=== PATIENT | male | born 1930 | race Caucasian/White ===

== ENCOUNTER 2017-04-22 19:24 | Inpatient (IN) | payer OTHER ==
[~2017-04-22] VITALS: Ht 180.3 cm; Wt 73.3 kg
[~2017-04-22 19:24] MED LIST: ALBUTEROL2.5 MG/0.1 INH; ASPIR 8181 MG PO; AZITHROMYCIN 2250 MG PO; COLACE100 MG PO; DOXYCYCLINE 10100 MG PO; FLONASE 0.05%50 MCG NASAL; KEFLEX500 MG PO; LIPITOR 20 MG T20 M1 PO; MACROBID 100 M100 M1 PO; TESSALON PERLE100 MG PO; VITAMIN D2000 UNIT PO
[2017-04-22 20:02] VITALS: BP 132/80
[2017-04-22 21:20] LABS: ABSOLUTE NEUTROPHILS 6.9 thou/uL (1.4-8.2); BASOPHILS 0.4 % (0.0-2.0); HEMATOCRIT 40.1 % (42.0-52.0); HEMOGLOBIN 13.5 gm/dL (14.0-18.0); LYMPHOCYTES 12.6 % (24.0-44.0); MCH 30.7 pg (26.0-34.0); MCHC 33.7 g/dL (28.0-37.0); MCV 90.9 fL (80.0-100.0); PLATELET COUNT 223 thou/uL (150-400); RBC 4.41 mil/uL (4.50-6.00); WBC 9.2 thou/uL (4.0-11.0)
[2017-04-22 21:23] LABS: URINE BILIRUBIN NEGATIVE (Negative); URINE BLOOD 3+ (Negative); URINE COLOR YELLOW; URINE GLUCOSE-RANDOM* NEGATIVE (Negative); URINE KETONES NEGATIVE (Negative); URINE NITRITE NEGATIVE (Negative); URINE PROTEIN (DIPSTICK) 1+ (Negative); URINE SPECIFIC GRAVITY 1.025 (1.003-1.035)
[2017-04-22 21:24] LABS: MANUAL DIFF NO
[2017-04-22 21:31] LABS: CALCIUM 9.4 mg/dL (8.5-10.1); POTASSIUM 3.6 mmol/L (3.5-5.1)
[2017-04-22 21:33] LABS: CASTS None Seen /LPF (None Seen); SQUAMOUS None Seen /LPF (0-3); URINE RBC >20 Many /HPF (0-2); URINE WBC >25 Many /HPF (0-5)
[2017-04-22 21:34] LABS: CRYSTALS None Seen /LPF (None Seen)
[2017-04-22 21:36] LABS: ALBUMIN 3.7 g/dL (3.4-5.0); DIRECT BILIRUBIN 0.3 mg/dL (<0.1-0.3); TOTAL BILIRUBIN 1.1 mg/dL (<0.1-1.0); TOTAL PROTEIN 7.2 g/dL (6.4-8.2)
[2017-04-22 23:18] VITALS: BP 135/69
[2017-04-22 23:30] VITALS: BP 159/78
[2017-04-23 03:24] LABS: HEMATOCRIT 37.5 % (42.0-52.0); HEMOGLOBIN 12.9 gm/dL (14.0-18.0); MCH 30.7 pg (26.0-34.0); MCHC 34.5 g/dL (28.0-37.0); MCV 88.9 fL (80.0-100.0); RBC 4.22 mil/uL (4.50-6.00); WBC 8.3 thou/uL (4.0-11.0)
[2017-04-23 03:42] LABS: CALCIUM 8.7 mg/dL (8.5-10.1); CREATININE 0.8 mg/dL (0.7-1.3); POTASSIUM 3.8 mmol/L (3.5-5.1)
[2017-04-23 03:55] VITALS: BP 151/73
[2017-04-23 07:56] VITALS: BP 125/69
[2017-04-23 16:18] VITALS: BP 121/64
[2017-04-23 19:50] VITALS: BP 120/61
[2017-04-24 03:45] VITALS: BP 138/88
[2017-04-24 06:13] LABS: CALCIUM 8.8 mg/dL (8.5-10.1); CREATININE 0.8 mg/dL (0.7-1.3); POTASSIUM 4.2 mmol/L (3.5-5.1)
[2017-04-24 08:00] VITALS: BP 123/71
[2017-04-24 16:00] VITALS: BP 141/77
[2017-04-24 20:00] VITALS: BP 149/74
[2017-04-25 03:02] LABS: ABSOLUTE NEUTROPHILS 3.6 thou/uL (1.4-8.2); BASOPHILS 0.6 % (0.0-2.0); EOSINOPHILS 6.5 % (0.0-3.0); HEMATOCRIT 38.2 % (42.0-52.0); LYMPHOCYTES 22.3 % (24.0-44.0); MCH 30.6 pg (26.0-34.0); MCHC 34.1 g/dL (28.0-37.0); MCV 89.9 fL (80.0-100.0); MONOCYTES 11.9 % (1.0-8.0); PLATELET COUNT 259 thou/uL (150-400); POLYS 58.7 % (36.0-66.0); RBC 4.25 mil/uL (4.50-6.00); WBC 6.1 thou/uL (4.0-11.0)
[2017-04-25 03:05] LABS: MANUAL DIFF NO
[2017-04-25 03:12] LABS: CALCIUM 8.8 mg/dL (8.5-10.1); CREATININE 0.9 mg/dL (0.7-1.3)
[2017-04-25 04:00] VITALS: BP 114/57
[2017-04-25 09:07] VITALS: BP 108/62
[2017-04-25] MEDS ORDERED: KEFLEX500 MG PO (12:51)
== END 2017-04-25 16:40 | DRG 689 ==
LOC: ER 19:24 → 3N 22:21 → EROBS 22:21 → 3N 23:18
PROVIDERS: Emergency Medicine; Internal Medicine Endocrinology, Diabetes & Metabolism; Nurse Practitioner Family
DX: N39.0 Urinary tract infection, site not specified (principal); G93.41 Metabolic encephalopathy; R26.9 Unspecified abnormalities of gait and mobility; G30.9 Alzheimer's disease, unspecified; F02.80 Dementia in other diseases classified elsewhere, unspecified severity, without behavioral disturbance, psychotic disturbance, mood disturbance, and anxiety; B95.61 Methicillin susceptible Staphylococcus aureus infection as the cause of diseases classified elsewhere; E78.5 Hyperlipidemia, unspecified; E78.00 Pure hypercholesterolemia, unspecified; Z95.0 Presence of cardiac pacemaker; Z86.73 Personal history of transient ischemic attack (TIA), and cerebral infarction without residual deficits; Z88.8 Allergy status to other drugs, medicaments and biological substances
CPT/HCPCS: 10096

== ENCOUNTER 2017-05-02 10:09 | Inpatient (IN) | payer OTHER ==
[~2017-05-02] VITALS: Ht 182.9 cm; Wt 82.2 kg
--- NOTE | ~2017-05-02 | CNG ---
[facility] [place] [address] CYTO-NONGYN REPORT PROCEDURE Name: JAKE SARMIENTO Room #: 216-P DIS IN M.R.#: [id number] Admission: 05/02/17 Date of : 32 Discharge: 05/10/17 Report #: [id number] Path Case #: [id number] CYTOPATHOLOGY REPORT COLLECTION DATE: 05/08/2017 RECEIVED DATE: 05/09/2017 SUBMITTING PHYS: Dr. Pal Caldwell OTHER PHYS: Dr. Talib Coles CLINICAL HISTORY: Falls, NSTEMI; progression of mental decline. SPECIMEN(S) RECEIVED: A.Pleural fluid, Right * * * * * * * * * * * * FINAL DIAGNOSIS: Right pleural fluid: - No malignant epithelial cells identified. - Reactive mesothelial cells, numerous macrophages and inflammation identified. COMMENT: Immunohistochemical stains are performed on the cell block. Calretinin - Reactive Desmin - Reactive BerEP4 - Nonreactive CD68 - Reactive The stains were performed due to the amount of cellularity identified within the pleural fluid along with a few reactive changes. Findings support a reactive process. (IUV:javier; 05/10/2017) PATHOLOGIST: Carley Lucero M.D. REPORT ELECTRONICALLY SIGNED BY: Carley Lucero M.D. DATE/TIME: 05/11/2017 11:12 * * * * * * * * * * * * GROSS PATHOLOGY: A. Pleural fluid, Right: The specimen is submitted unfixed, labeled "Jake Sarmiento". Received by the Cytology Department is 20 mL of clear yellow fluid. One ThinPrep slide and a cell block were prepared. (clt 05.09.2017) LEARNING ANALYST(S): WILI Aleman(ASCP) INITIAL CPT CODE(S): A; 89516, 65787, 30512, 27646, 09983, 37163 Professional services performed by [facility] at [facility] [address] [place] [address] CYTO-NONGYN REPORT PROCEDURE Name: JAKE SARMIENTO Room #: 216-P DIS IN M.R.#: [id number] Admission: 05/02/17 Date of : 32 Discharge: 05/10/17 Report #: [id number] Path Case #: [id number] [facility] [address], [place] [address] Technical services performed by [facility] at [address] [place] [address]., [address], [place] [address]. [address], [address] [place] [address] PHONE: [phone] DIRECTOR: Ramon Leal M.D. * * * END OF REPORT * * *
--- NOTE | ~2017-05-02 | EKG ---
[address] [place] [address] ELECTROCARDIOGRAM REPORT Name: TIGRE BAUTISTA Room #: 216-P ADM IN M.R.#: [id number] Admission: 05/02/17 Attend Phys: Talib Newton DO Discharge: Date of : 32 Report #: [id number] THIS REPORT FOR: //name// 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 : 1930 Requested By: Pieter Epperson Order Number: [id number] MD: Salvador Ramos Measurements Intervals [place] Rate: 85 P: [place]: QRS: -20 QRSD: 92 T: 59 QT: 376 QTc: 447 Interpretive Statements Atrial fibrillation Borderline left axis deviation Anterior infarct, old Nonspecific T abnormalities, lateral leads Compared to ECG 05/02/2017 10:31:40 Atrial fibrillation has replaced sinus rhythm Electronically Signed On 05-09-2017 9:24:33 CDT by Salvador Ramos [email or web address] <ELECTRONICALLY SIGNED> By: Salvador Ramos MD, [facility] 05/09/17 0924 1411 141 Salvador Ramos MD, [facility] /EPI
--- NOTE | ~2017-05-02 | EKG ---
[address] [address] ELECTROCARDIOGRAM REPORT Name: TIGRE BAUTISTA Room #: 216-P ADM IN M.R.#: [id number] Admission: 05/02/17 Attend Phys: Talib Newton DO Discharge: Date of : 32 Report #: [id number] THIS REPORT FOR: //name// [facility] ED Test Date: 2017-05-02 Test Time: 10:31:40 Pat Name: TIGRE BAUTISTA Department: Room: 216 Gender: M Pourer Off: FAUSTO : 1930 Requested By: Wendy Tai Order Number: [id number] MD: Alex Munoz Measurements Intervals [place] Rate: 93 P: 36 NE: 192 QRS: 7 QRSD: 99 T: -15 QT: 378 QTc: 471 Interpretive Statements Sinus rhythm Atrial premature complex Inferior infarct, age indeterminate Probable anterior infarct, old Compared to ECG 10/20/2016 07:21:42 Myocardial infarct finding now present T-wave abnormality no longer present Electronically Signed On 05-03-2017 22:50:35 CDT by Alex Munoz [email or web address] <ELECTRONICALLY SIGNED> By: Alex Munoz MD 05/03/17 2250 1031 1031 Alex Munoz MD /EPI
--- NOTE | ~2017-05-02 | EKG ---
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 : 1930 Requested By: Alex Munoz Order Number: [id number] MD: Alex Munoz Measurements Intervals [place] Rate: 83 P: [place]: QRS: -2 QRSD: 100 T: 108 QT: 352 QTc: 414 Interpretive Statements Atrial fibrillation Nonspecific T abnormalities, lateral leads Baseline wander in lead(s) V5 Compared to ECG 05/08/2017 14:11:06 Myocardial infarct finding no longer present T-wave abnormality still present Electronically Signed On 05-09-2017 14:13:16 CDT by Alex Munoz [email or web address] <ELECTRONICALLY SIGNED> By: Alex Munoz MD 05/09/17 1413 1102 1102 Alex Munoz MD /EPI
--- NOTE | ~2017-05-02 | 2DMMODE ---
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 Time: 164.94 ms MV E Max Wilberto.: 0.60 m/s MV A Wilberto.: 0.86 m/s MV PHT: 47.[address] [facility] [address] [place] [address] 2 D/M-MODE ECHOCARDIOGRAM Name: [facility] Room #: 216-P [facility] IN M.R.#: [id number] Admission: 05/02/17 Attend Phys: Talib Newton, Discharge: Date of : 32 Date of Service: 05/02/17 1625 Report #: [id number] IVRT: 96.89 ms Pulmonary Valve PV Peak Wilberto.: 0.94 m/s PV Peak Gr.: 3.52 mmHg Tricuspid Valve TR Peak Wilberto.: 3.37 m/s RAP Estimate: 5.00 mmHg TR Peak Gr.: 45.34 mmHg PA Pressure: 50.00 mmHg Left Ventricle The left ventricle is normal size. Concentric left ventricular hypertrophy. The left ventricular systolic function is normal. The left ventricular ejection fraction is within the normal range. LVEF is 55-60%. Grade I - abnormal relaxation pattern. Right Ventricle The right ventricle is normal size. The right ventricular systolic function is normal. Pacemaker lead is present in the right ventricle. Atria The left atrium size is normal. Right atrium is at the upper limits of normal. Aortic Valve Aortic valve is calcified and thickened. Trace aortic regurgitation. Mild aortic stenosis. Mitral Valve The mitral valve is normal in structure. Trace mitral regurgitation. No evidence of mitral valve stenosis. Tricuspid Valve The tricuspid valve is normal in structure. There is mild to moderate tricuspid regurgitation. The right atrial pressure is estimated at 5 mmHg. There is moderate pulmonary hypertension with an estimated PAP of 50 mmHg. Pulmonic Valve The pulmonary valve is normal in structure. Trace pulmonic regurgitation. Great Vessels The aortic root is normal in size. IVC is normal in size and collapses >50% with inspiration. [facility] [address] [place] [address] 2 D/M-MODE ECHOCARDIOGRAM Name: [facility] Room #: 216-P ADM IN M.R.#: [id number] Admission: 05/02/17 Attend Phys: Talib Newton, Discharge: Date of : 32 Date of Service: 05/02/17 1625 Report #: [id number] Pericardium There is no pericardial effusion. <Conclusion> The left ventricle is normal size. LVEF is 55-60%. Pacemaker lead is present in the right ventricle. Right atrium is at the upper limits of normal. Aortic valve is calcified and thickened. Trace aortic regurgitation. Mild aortic stenosis. The mitral valve is normal in structure. Trace mitral regurgitation. The tricuspid valve is normal in structure. There is mild to moderate tricuspid regurgitation. The right atrial pressure is estimated at 5 mmHg. There is moderate pulmonary hypertension with an estimated PAP of 50 mmHg. The pulmonary valve is normal in structure. Trace pulmonic regurgitation. <ELECTRONICALLY SIGNED> By: Niall Duque MD 05/02/17 1625 1625 1625 Niall Duque MD /INF
[2017-05-02 10:10] VITALS: BP 167/64
[2017-05-02 10:44] LABS: HEMATOCRIT 43.9 % (42.0-52.0); HEMOGLOBIN 14.7 gm/dL (14.0-18.0); MCH 30.1 pg (26.0-34.0); MCHC 33.4 g/dL (28.0-37.0); MCV 90.1 fL (80.0-100.0); PLATELET COUNT 335 thou/uL (150-400); RBC 4.87 mil/uL (4.50-6.00); RDW 13.8 % (10.5-14.5); WBC 13.5 thou/uL (4.0-11.0)
[2017-05-02 10:45] LABS: MANUAL DIFF YES
[2017-05-02 10:54] LABS: CALCIUM 10.1 mg/dL (8.5-10.1); CREATININE 0.9 mg/dL (0.7-1.3)
[2017-05-02 10:55] LABS: POTASSIUM 4.5 mmol/L (3.5-5.1)
[2017-05-02 11:05] LABS: TROPONIN-I 0.63 ng/mL (<0.04-0.07)
[2017-05-02 11:46] LABS: ABSOLUTE NEUTROPHILS 12.3 thou/uL (1.4-8.2); ANISOCYTOSIS SLIGHT; TOTAL CELL COUNT 100
[2017-05-02] MEDS ORDERED: COSOPT EYE DROPS5 ML (12:20)
[2017-05-02 16:07] VITALS: BP 148/81
[2017-05-02 19:37] VITALS: BP 144/83
[2017-05-02 23:29] VITALS: BP 128/68
[2017-05-03 02:57] LABS: HEMATOCRIT 35.3 % (42.0-52.0); MCH 30.3 pg (26.0-34.0); MCHC 33.7 g/dL (28.0-37.0); PLATELET COUNT 266 thou/uL (150-400); RBC 3.92 mil/uL (4.50-6.00); RDW 14.3 % (10.5-14.5)
[2017-05-03 03:05] LABS: CALCIUM 8.4 mg/dL (8.5-10.1); CREATININE 0.9 mg/dL (0.7-1.3)
[2017-05-03 03:16] VITALS: BP 133/72
[2017-05-03 03:17] LABS: HEMOGLOBIN 11.9 gm/dL (14.0-18.0); MANUAL DIFF YES
[2017-05-03 05:14] LABS: TOTAL CELL COUNT 100
[2017-05-03 07:40] VITALS: BP 137/74
[2017-05-03 11:35] VITALS: BP 137/75
[2017-05-03 15:50] VITALS: BP 140/78
[2017-05-03 19:38] VITALS: BP 150/84
[2017-05-04 03:20] LABS: HEMATOCRIT 36.5 % (42.0-52.0); HEMOGLOBIN 12.2 gm/dL (14.0-18.0); MCH 30.2 pg (26.0-34.0); MCHC 33.5 g/dL (28.0-37.0); MCV 89.9 fL (80.0-100.0); PLATELET COUNT 278 thou/uL (150-400); RBC 4.05 mil/uL (4.50-6.00); RDW 13.8 % (10.5-14.5); WBC 12.5 thou/uL (4.0-11.0)
[2017-05-04 03:21] LABS: MANUAL DIFF YES
[2017-05-04 03:29] VITALS: BP 174/90
[2017-05-04 03:39] LABS: CALCIUM 8.3 mg/dL (8.5-10.1); CREATININE 0.8 mg/dL (0.7-1.3); POTASSIUM 3.8 mmol/L (3.5-5.1); TROPONIN-I 0.34 ng/mL (<0.04-0.07)
[2017-05-04 03:42] LABS: PLATELET ESTIMATE NORMAL; TOTAL CELL COUNT 100
[2017-05-04 08:44] VITALS: BP 167/93
[2017-05-04 11:59] VITALS: BP 181/105
[2017-05-04 16:15] LABS: URINE BILIRUBIN NEGATIVE (Negative); URINE BLOOD 1+ (Negative); URINE COLOR YELLOW; URINE GLUCOSE-RANDOM* 3+ (Negative); URINE KETONES NEGATIVE (Negative); URINE NITRITE NEGATIVE (Negative); URINE PROTEIN (DIPSTICK) NEGATIVE (Negative); URINE SPECIFIC GRAVITY 1.015 (1.003-1.035); URINE UROBILINOGEN 0.2 E.U./dl (0.2-1.0)
[2017-05-04 16:27] LABS: BACTERIA 1-9 Few /HPF (None Seen); CASTS None Seen /LPF (None Seen); CRYSTALS None Seen /LPF (None Seen); SQUAMOUS 0-3 Few /LPF (0-3); URINE RBC >20 Many /HPF (0-2); URINE WBC 0-5 Rare /HPF (0-5)
[2017-05-04 19:51] VITALS: BP 155/85
[2017-05-04 21:44] LABS: FOLIC ACID 21.2 ng/mL (8.6-58.9); TSH 0.844 uIU/mL (0.358-3.740)
[2017-05-05 03:22] LABS: HEMATOCRIT 35.7 % (42.0-52.0); MCH 30.2 pg (26.0-34.0); MCHC 33.7 g/dL (28.0-37.0); MCV 89.5 fL (80.0-100.0); RBC 3.98 mil/uL (4.50-6.00); RDW 14.1 % (10.5-14.5); WBC 15.5 thou/uL (4.0-11.0)
[2017-05-05 03:34] LABS: CALCIUM 8.9 mg/dL (8.5-10.1); CREATININE 0.9 mg/dL (0.7-1.3); POTASSIUM 3.7 mmol/L (3.5-5.1)
[2017-05-05 04:02] VITALS: BP 145/84
[2017-05-05 08:00] VITALS: BP 132/80
[2017-05-05 12:00] VITALS: BP 127/70
[2017-05-05 16:00] VITALS: BP 137/82
[2017-05-05 19:20] VITALS: BP 131/92
[2017-05-06 03:29] LABS: HEMATOCRIT 34.1 % (42.0-52.0); HEMOGLOBIN 11.3 gm/dL (14.0-18.0); MCV 90.9 fL (80.0-100.0); RBC 3.75 mil/uL (4.50-6.00); RDW 14.5 % (10.5-14.5); WBC 12.1 thou/uL (4.0-11.0)
[2017-05-06 03:40] VITALS: BP 155/89
[2017-05-06 03:43] LABS: CALCIUM 8.8 mg/dL (8.5-10.1); CREATININE 0.9 mg/dL (0.7-1.3); POTASSIUM 3.7 mmol/L (3.5-5.1)
[2017-05-06 07:37] VITALS: BP 170/97
[2017-05-06 11:24] VITALS: BP 132/81
[2017-05-06 14:40] VITALS: BP 132/81
[2017-05-06 16:01] VITALS: BP 131/70
[2017-05-06 20:43] VITALS: BP 142/78
[2017-05-07 03:48] VITALS: BP 133/78
[2017-05-07 07:52] VITALS: BP 138/77
[2017-05-07 11:08] VITALS: BP 123/62
[2017-05-07 13:04] LABS: ABG SAMPLE TYPE ARTERIAL; HCO3 27.6 mmol/L (22.0-26.0); LACTATE 2.42 mmol/L (0.5-2.0); O2(CT) 16.6 mL/dL (15.0-23.0); O2Hb 92.8 % (92.0-98.0); PCO2 37.8 mmHg (35.0-45.0); PO2 66.4 mmHg (80.0-100.0); pH 7.481 (7.360-7.450); sO2 94.5 % (92.0-98.0); tCO2 28.7 mmol/L (24.0-30.0)
[2017-05-07 13:05] LABS: STICK SITE L.RADIAL
[2017-05-07 16:00] VITALS: BP 133/67
[2017-05-07 19:35] VITALS: BP 135/79
[2017-05-08 03:04] VITALS: BP 119/64
[2017-05-08 08:00] VITALS: BP 142/74
[2017-05-08 08:25] VITALS: BP 142/74
[2017-05-08 08:46] LABS: ABG SAMPLE TYPE ARTERIAL; BE(vivo) 4.4 mmol/L (-2 to +3); HCO3 28.2 mmol/L (22.0-26.0); LACTATE 1.68 mmol/L (0.5-2.0); PCO2 39.4 mmHg (35.0-45.0); pH 7.473 (7.360-7.450); sO2 83.2 % (92.0-98.0); tCO2 29.4 mmol/L (24.0-30.0)
[2017-05-08 08:52] LABS: PO2 44.2 mmHg (80.0-100.0); STICK SITE R.RADIAL
[2017-05-08 12:59] LABS: CLARITY SLIGHTLY CLOUDY; COLOR YELLOW; TOTAL VOLUME 60 mL
[2017-05-08 13:14] LABS: BF NUCLEATED CELLS 738; BF RBC 1350
[2017-05-08 14:27] LABS: BF MACROPHAGE 25; BF NEUTROPHILS 48; MANUAL DIFF YES
[2017-05-08 16:35] VITALS: BP 149/83
[2017-05-08 18:40] LABS: CALCIUM 9.3 mg/dL (8.5-10.1); POTASSIUM 4.1 mmol/L (3.5-5.1)
[2017-05-08 19:41] VITALS: BP 108/57
[2017-05-09 03:49] VITALS: BP 109/60
[2017-05-09 03:49] LABS: CALCIUM 8.9 mg/dL (8.5-10.1); CREATININE 1.1 mg/dL (0.7-1.3); POTASSIUM 3.8 mmol/L (3.5-5.1)
[2017-05-09 08:23] VITALS: BP 100/62
[2017-05-09 12:37] VITALS: BP 33/76
[2017-05-09 12:56] VITALS: BP 33/76
[2017-05-09 16:20] VITALS: BP 104/62
[2017-05-09 20:49] VITALS: BP 127/55
[2017-05-10 07:56] VITALS: BP 108/53
[2017-05-10 08:41] LABS: CALCIUM 8.9 mg/dL (8.5-10.1); POTASSIUM 3.7 mmol/L (3.5-5.1)
[2017-05-10 12:17] VITALS: BP 123/60
[2017-05-10] MEDS ORDERED: AMLODIPINE BESY10 MG PO (14:14)
[2017-05-10] MEDS ORDERED: PREDNISONE 20 M20 M1 PO (14:14)
[2017-05-10] MEDS ORDERED: B-12500 MCG PO (14:14)
[2017-05-10] MEDS ORDERED: LEVAQUIN 250 M250 MG PO (14:14)
[2017-05-10] MEDS ORDERED: LOPRESSOR25 PO (14:14)
[2017-05-10 14:43] VITALS: BP 132/81
[2017-05-10 15:24] VITALS: BP 98/52
[2017-05-10 16:08] LABS: BODY FLUID ALBUMIN 1.4 g/dL (()); BODY FLUID AMYLASE 20 U/L (()); BODY FLUID GLUCOSE 106 mg/dL (()); BODY FLUID LDH 139 IU/L (()); BODY FLUID PROTEIN 2.1 g/dL (())
== END 2017-05-10 18:30 | disposition home health service (06) | DRG 564 ==
LOC: ER 10:09 → EROBS 11:08 → 2N 11:08
PROVIDERS: Emergency Medicine; Family Medicine; Internal Medicine Cardiovascular Disease; Internal Medicine Pulmonary Disease; Psychiatry & Neurology Neurology
PROC: 0W993ZX Drainage of Right Pleural Cavity, Percutaneous Approach, Diagnostic (ICD-10-PCS; principal; 2017-05-08)
DX: T79.6XXA Traumatic ischemia of muscle, initial encounter (principal); J18.9 Pneumonia, unspecified organism; J96.01 Acute respiratory failure with hypoxia; J90 Pleural effusion, not elsewhere classified; E78.00 Pure hypercholesterolemia, unspecified; G30.9 Alzheimer's disease, unspecified; I27.2 Other secondary pulmonary hypertension; F02.80 Dementia in other diseases classified elsewhere, unspecified severity, without behavioral disturbance, psychotic disturbance, mood disturbance, and anxiety; H40.9 Unspecified glaucoma; S51.012A Laceration without foreign body of left elbow, initial encounter; I48.91 Unspecified atrial fibrillation; E78.5 Hyperlipidemia, unspecified; G93.89 Other specified disorders of brain; R00.0 Tachycardia, unspecified; D72.829 Elevated white blood cell count, unspecified; T38.0X5A Adverse effect of glucocorticoids and synthetic analogues, initial encounter; T48.6X5A Adverse effect of antiasthmatics, initial encounter; R26.9 Unspecified abnormalities of gait and mobility; W18.30XA Fall on same level, unspecified, initial encounter; Z95.0 Presence of cardiac pacemaker; Z86.73 Personal history of transient ischemic attack (TIA), and cerebral infarction without residual deficits; Z88.8 Allergy status to other drugs, medicaments and biological substances; Y93.89 Activity, other specified; Y92.098 Other place in other non-institutional residence as the place of occurrence of the external cause; Y99.8 Other external cause status; Z87.440 Personal history of urinary (tract) infections; Z79.82 Long term (current) use of aspirin; Z79.899 Other long term (current) drug therapy
CPT/HCPCS: 10081

== ENCOUNTER 2017-11-24 07:28 | Inpatient (IN) | payer OTHER ==
[~2017-11-24] VITALS: Ht 182.9 cm; Wt 77.1 kg
--- NOTE | ~2017-11-24 | EKG ---
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 : 1930 Requested By: Jin Melvin Order Number: [id number] MD: Salvador Ramos Measurements Intervals [place] Rate: 97 P: 51 [place]: 170 QRS: -3 QRSD: 94 T: -16 QT: 357 QTc: 454 Interpretive Statements Sinus rhythm Cannot rule out inferior infarct, old Poor R wave progression Nonspecific ST segment abnormality Compared to ECG 05/09/2017 11:02:42 No significant change was found Electronically Signed On 11-24-2017 8:47:30 BRAKE SPECIALIST by Salvador Ramos [email or web address] <ELECTRONICALLY SIGNED> By: Salvador Ramos MD, [facility] 11/24/17 0847 0753 0753 Salvador Ramos MD, [facility] /EPI
[~2017-11-24 07:28] MED LIST changes: +AMLODIPINE BESY10 MG PO; +B-12500 MCG PO; +COSOPT EYE DROPS5 ML; +LEVAQUIN 250 M250 MG PO; +LOPRESSOR25 PO; +PREDNISONE 20 M20 M1 PO
[2017-11-24 07:29] VITALS: BP 110/63
[2017-11-24 07:45] LABS: HEMATOCRIT 35.4 % (42.0-52.0); HEMOGLOBIN 11.9 gm/dL (14.0-18.0); MCH 29.8 pg (26.0-34.0); MCHC 33.6 g/dL (28.0-37.0); MCV 88.6 fL (80.0-100.0); RDW 14.3 % (10.5-14.5); WBC 7.1 thou/uL (4.0-11.0)
[2017-11-24 07:56] LABS: ANION GAP 8 mmol/L (7-16); BUN 20 mg/dL (7-18); CALCIUM 9.4 mg/dL (8.5-10.1); CHLORIDE 100 mmol/L (98-107); CO2 29 mmol/L (21-32); CREATININE 1.2 mg/dL (0.7-1.3); GLUCOSE 112 mg/dL (74-106); POTASSIUM 4.7 mmol/L (3.5-5.1); SODIUM 137 mmol/L (136-145)
[2017-11-24 08:04] LABS: ALBUMIN 3.1 g/dL (3.4-5.0); SGOT 15 U/L (15-37); SGPT 11 U/L (30-65); TOTAL BILIRUBIN 0.9 mg/dL (<0.1-1.0); TOTAL PROTEIN 7.4 g/dL (6.4-8.2); TROPONIN-I < 0.04 ng/mL (<0.06)
[2017-11-24 08:12] LABS: URINE BILIRUBIN NEGATIVE (Negative); URINE BLOOD NEGATIVE (Negative); URINE CLARITY CLEAR; URINE COLOR YELLOW; URINE GLUCOSE-RANDOM* NEGATIVE (Negative); URINE KETONES TRACE (Negative); URINE LEUKOCYTES-REFLEX NEGATIVE (Negative); URINE NITRITE-REFLEX NEGATIVE (Negative); URINE PROTEIN (DIPSTICK) NEGATIVE (Negative); URINE SPECIFIC GRAVITY >= 1.030 (1.005-1.035); URINE UROBILINOGEN 0.2 E.U./dl (0.2-1.0)
[2017-11-24 12:48] VITALS: BP 128/75
[2017-11-24 13:14] VITALS: BP 128/75
[2017-11-24 15:30] VITALS: BP 128/67
[2017-11-24 19:24] VITALS: BP 135/64
[2017-11-25 04:11] VITALS: BP 122/72
[2017-11-25 07:30] VITALS: BP 12/75
[2017-11-25] MEDS ORDERED: FOLBIC RF TABL1 EACH PO (09:28)
[2017-11-25] MEDS ORDERED: AMLODIPINE BESYL5 M1 PO (09:28)
[2017-11-25 16:00] VITALS: BP 112/60
[2017-11-25 19:40] VITALS: BP 118/56
[2017-11-26 03:24] VITALS: BP 120/67
[2017-11-26 07:43] VITALS: BP 126/62
[2017-11-26 15:45] VITALS: BP 91/47
[2017-11-26 19:21] VITALS: BP 121/52
[2017-11-27 00:25] VITALS: BP 115/64
[2017-11-27 04:31] VITALS: BP 99/51
[2017-11-27 08:00] VITALS: BP 104/54
== END 2017-11-27 16:50 | disposition hospice, home (50) | DRG 314 ==
LOC: ER 07:28 → 4E 08:20 → EROBS 08:20 → 4E 12:26
PROVIDERS: Emergency Medicine
DX: I95.9 Hypotension, unspecified (principal); J96.91 Respiratory failure, unspecified with hypoxia; E78.00 Pure hypercholesterolemia, unspecified; G30.9 Alzheimer's disease, unspecified; F02.80 Dementia in other diseases classified elsewhere, unspecified severity, without behavioral disturbance, psychotic disturbance, mood disturbance, and anxiety; H40.9 Unspecified glaucoma; I25.10 Atherosclerotic heart disease of native coronary artery without angina pectoris; E78.5 Hyperlipidemia, unspecified; Z66 Do not resuscitate; Z95.0 Presence of cardiac pacemaker; Z86.73 Personal history of transient ischemic attack (TIA), and cerebral infarction without residual deficits; Z88.8 Allergy status to other drugs, medicaments and biological substances; Z95.1 Presence of aortocoronary bypass graft
CPT/HCPCS: 10183